=== PATIENT | female | born 1955 | race Caucasian/White ===

== ENCOUNTER 2016-12-12 02:45 | Emergency (ER) | payer OTHER ==
--- NOTE | ~2016-12-12 | CR173 ---
[facility] [place]. [facility] A Service of [facility] & [facility] RADIOLOGY TEXT RESULTS PATIENT: HEIDI DE LEON LOCATION: SED : 57 UNIT #: [id number] AGE: [address]: William Xiong MD SEX: F ORDER DR: [id number] [place] [id number] E MR#: [id number] Acc #: [id number] NAME: HEIDI DE LEON : 1955 SEX: F STUDY DATE/TIME: 12/12/2016 04:08 UNIT: SED ROOM: STUDY DESCRIPTION: CR Knee 3 Views Rt Attending Physician: William Xiong M.D. Ordering Physician: William Xiong M.D. Primary Care Physician: Lissy Johnson MEDICAL IMAGING REPORT This report is preliminary unless electronic signature is present. EXAM Right knee 12/12/2016 04:08 INDICATION Knee pain after fall yesterday. FINDINGS 3 views of the right knee were obtained. There is severe tricompartmental osteoarthritis. No acute fractures are identified, and there is no joint effusion. There may be a loose body in the anterior aspect of the knee. IMPRESSION Severe osteoarthritis. No acute findings in the knee. There may be a loose body within the joint space below the patella. Dictated by... Keaton Gupta Jr., M.D. THIS IS AN ELECTRONICALLY VERIFIED REPORT Keaton Gupta Jr., M.D. at 12/13/2016 6:00 AM DAYANNA/jonah TD: 12/12/2016 06:32 JOB #: [id number] MEDICAL IMAGING REPORT Page 1 of 1
--- NOTE | ~2016-12-12 | CR181 ---
[facility]. [facility] A Service of [facility] & [facility] RADIOLOGY TEXT RESULTS PATIENT: HEIDI DE LEON LOCATION: SED : 57 UNIT #: [id number] AGE: [address]: William Xiong MD SEX: F ORDER DR: [id number] [place] [id number] E MR#: [id number] Acc #: [id number] NAME: HEIDI DE LEON : 1955 SEX: F STUDY DATE/TIME: 12/12/2016 04:08 UNIT: SED ROOM: STUDY DESCRIPTION: CR Lumbar Spine 2 or 3 Views Attending Physician: William Xiong M.D. Ordering Physician: William Xiong M.D. Primary Care Physician: Lissy Johnson MEDICAL IMAGING REPORT This report is preliminary unless electronic signature is present. EXAM Lumbar spine 12/12/2016 04:08 INDICATION Low back pain after fall yesterday. FINDINGS 3 views of the lumbar spine were obtained. No comparison. The patient is fused at L2, L3 and L4 with pedicle screws. The patient is also probably fused at L4-5, L5-S1 without hardware. No acute fractures are identified. There is subtle retrolisthesis of L2 on L3. 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 IMPRESSION Postoperative change from fusion as well as degenerative disease noted. No acute fractures. Dictated by... Keaton Gupta Jr., M.D. THIS IS AN ELECTRONICALLY VERIFIED REPORT Keaton Gupta Jr., M.D. at 12/13/2016 6:00 AM DAYANNA/jonah TD: 12/12/2016 06:29 JOB #: [id number] MEDICAL IMAGING REPORT Page 1 of 1
--- NOTE | ~2016-12-12 | CR151 ---
[facility]. [facility] A Service of [facility] & [facility] RADIOLOGY TEXT RESULTS PATIENT: HEIDI DE LEON LOCATION: SED : 57 UNIT #: [id number] AGE: [address]: William Xiong MD SEX: F ORDER DR: [id number] [place] [id number] E MR#: [id number] Acc #: [id number] NAME: HEIDI DE LEON : 1955 SEX: F STUDY DATE/TIME: 12/12/2016 04:08 UNIT: SED ROOM: STUDY DESCRIPTION: CR Hip Min 2 Views Rt Attending Physician: William Xiong M.D. Ordering Physician: William Xiong M.D. Primary Care Physician: Lissy Johnson MEDICAL IMAGING REPORT This report is preliminary unless electronic signature is present. EXAM Right hip and pelvis 12/13 407 INDICATIONS Right hip pain after a fall yesterday. FINDINGS AP pelvis was obtained in addition to a frog-leg right hip. No comparison. No fracture or malalignment is seen. There is bilateral hip osteoarthritis with joint space narrowing and acetabular spurring. Patient is status post lumbar fusion. IMPRESSION Bilateral hip osteoarthritis. No acute fracture. Dictated by... Keaton Gupta Jr., M.D. THIS IS AN ELECTRONICALLY VERIFIED REPORT Keaton Gupta Jr., M.D. at 12/13/2016 6:00 AM DAYANNA/elsa TD: 12/12/2016 06:29 JOB #: [id number] MEDICAL IMAGING REPORT Page 1 of 1
[~2016-12-12 02:45] MED LIST: AMOXICILLIN875 MG PO; FLEXERIL10 M1 PO; METOPROLOL SUCC25 MG PO; NEURONTIN100 MG PO; NORCO 10-325 TA1 TAB PO; OMEPRAZOLE20 M1 PO; ROBINUL FORTE2 MG PO
[2016-12-12] MEDS ORDERED: FLEXERIL10 MG PO (03:04)
[2016-12-12] MEDS ORDERED: METOPROLOL TAR25 MG DOB (03:05)
[2016-12-12] MEDS ORDERED: VOLTAREN75 MG PO (03:05)
[2016-12-12] MEDS ORDERED: CRESTOR10 MG PO (03:07)
[2016-12-12] MEDS ORDERED: OMEPRAZOLE20 M1 PO (03:07)
[2016-12-12] MEDS ORDERED: BENADRYL25 M3 PO (03:08)
[2016-12-12] MEDS ORDERED: VITAMIN D250000 UNIT PO (03:09)
[2016-12-12] MEDS ORDERED: LORCET HD 10-31 EACH PO (03:12)
[2016-12-12] MEDS ORDERED: OPANA ER30 MG PO (03:12)
[2016-12-12] MEDS ORDERED: LINZESS290 MCG PO (03:13)
== END 2016-12-12 05:35 | disposition home or self-care (01) ==
LOC: SED 02:45
DX: S33.5XXA Sprain of ligaments of lumbar spine, initial encounter (principal); S83.91XA Sprain of unspecified site of right knee, initial encounter; S70.01XA Contusion of right hip, initial encounter; W18.39XA Other fall on same level, initial encounter; F17.200 Nicotine dependence, unspecified, uncomplicated
CPT/HCPCS: 72100; 73502; 73562; 96372; 99284; J1170

== ENCOUNTER → 2016-12-20 | Outpatient (CLI) | payer OTHER ==
[~2016-12-20] MED LIST changes: +BENADRYL25 M3 PO; +CRESTOR10 MG PO; +FLEXERIL10 MG PO; +LINZESS290 MCG PO; +LORCET HD 10-31 EACH PO; +METOPROLOL TAR25 MG DOB; +OPANA ER30 MG PO; +VITAMIN D250000 UNIT PO; +VOLTAREN75 MG PO
--- NOTE | ~2016-12-20 | MR104 ---
[facility] A Service of [facility] & [facility] RADIOLOGY TEXT RESULTS PATIENT: HEIDI DE LEON LOCATION: CMRI : 57 UNIT #: [id number] AGE: [address]: Anand Patel MD SEX: F ORDER DR: [id number] [facility] [address] [place], [place] [address] [id number] O MR#: [id number] Acc #: [id number] NAME: HEIDI DE LEON : 1955 SEX: F STUDY DATE/TIME: 12/20/2016 19:56 UNIT: CMRI ROOM: STUDY DESCRIPTION: MR Knee Wo Contrast Rt Attending Physician: Anand Patel M.D. Referring Physician: Anand Patel M.D. Ordering Physician: Anand Patel M.D. Primary Care Physician: Jerald Walker M.D. MRI CENTER REPORT This report is preliminary unless electronic signature is present. EXAM MRI of the right knee HISTORY 61-year-old female right knee pain, heard a pop. Fell 1 week ago in her bedroom. Pain started over a year ago. COMPARISON Right knee films 12/12/2016. TECHNIQUE Multiplanar, multiecho imaging was performed of the right knee utilizing a high-field magnet and dedicated protocol. FINDINGS Examination demonstrates advanced medial compartment arthrosis with extensive full-thickness cartilage loss medial femoral condyle and medial tibial plateau. There is a subchondral edema, subchondral cystic change, and partial collapse along the central weightbearing aspect of the medial femoral condyle measuring up to 1 cm. There is approximately 1-2 mm of depression of the central medial femoral condyle. Marrow edema also noted along the anterior aspect of the medial tibial plateau. There is a small knee effusion. In the medial compartment, there is a degenerative tear of the midbody segment of the medial meniscus and substantial loss of the meniscal volume and posterior horn of the medial meniscus with probable longitudinal oblique tear. No displaced meniscal fragment. In the lateral compartment, the meniscus appears intact. Mild chondromalacia of the lateral compartment. In the patellofemoral compartment, mild chondromalacia medial patellar facet and median ridge of the patella. Trochlear cartilage unremarkable. Anterior and posterior cruciate ligaments appear intact. The medial collateral ligament is displaced medially secondary to marginal STS. [facility] A Service of [facility] RADIOLOGY TEXT RESULTS PATIENT: HEIDI DE LEON [facility] [birth year] UNIT #: [id number] AGE: [address]: Anand Patel MD SEX: F ORDER DR: osteophytes. The lateral collateral ligament complex appears intact. In the posterior aspect of the knee posterior to the PCL, there is a sizeable structure measuring up to 1.8 cm. It is unclear whether this represents a loose body or a large osteophyte, based on the plain films, I suspect this represents a large osteophyte as there does appear to be a connection to the posterior tibial margin. Extensor mechanism and extraarticular soft tissues unremarkable. There is also a moderate amount of edema and fluid along the popliteus muscle and given the patient's history of a recent injury, this is compatible with a popliteus muscle strain. The popliteus tendon does demonstrate some increased signal suggesting a tendinopathy but no tear. IMPRESSION 1. Developing tricompartment degenerative arthropathy of the knee with medial compartment predominance with extensive full-thickness cartilage loss medial compartment with subchondral edema, medial femoral condyle, and medial tibial plateau. There is central depression of the medial femoral condyle probably related to subchondral collapse and underlying degenerative cystic change. 2. Probable acute popliteus muscle strain with mild popliteus tendinopathy. 3. Extensive degenerative tear of the medial meniscus midbody segment into the posterior horn. No discrete displaced meniscal fragment though there is some medial extrusion meniscus. 4. Not mentioned above, there is a sizeable cyst at the origin of the medial head of the gastrocnemius measuring up to 2 cm compatible with a ganglion cyst. Dictated by... Polly Miramontes M.D. THIS IS AN ELECTRONICALLY VERIFIED REPORT Polly Miramontes M.D. at 12/21/2016 4:35 PM Riley TD: 12/21/2016 10:40 JOB #: [id number] MRI CENTER REPORT Page 1 of 1 COPY
== END | disposition home or self-care (01) ==
LOC: CMRI 18:52
DX: M17.11 Unilateral primary osteoarthritis, right knee (principal); M23.321 Other meniscus derangements, posterior horn of medial meniscus, right knee
CPT/HCPCS: 73721

== ENCOUNTER 2017-03-14 10:25 | Emergency (ER) | payer OTHER ==
[~2017-03-14] VITALS: Ht 160 cm; Wt 88.5 kg
--- NOTE | ~2017-03-14 | US85 ---
[facility] A Service of [facility] RADIOLOGY TEXT RESULTS PATIENT: HEIDI DE LEON LOCATION: [facility] : 57 UNIT #: [id number] AGE: [address]: Milton Nicholson MD SEX: F ORDER DR: [id number] [facility] [address] [place], [place] [address] [id number] E MR#: [id number] Acc #: [id number] NAME: HEIDI DE LEON : 1955 SEX: F STUDY DATE/TIME: 03/14/2017 13:34 UNIT: ELFEGO ROOM: STUDY DESCRIPTION: Mass [facility] Attending Physician: Milton Nicholson M.D. Ordering Physician: Milton Nicholson M.D. Primary Care Physician: Jerald Walker M.D. MEDICAL IMAGING REPORT This report is preliminary unless electronic signature is present EXAM Right lower extremity venous ultrasound HISTORY Right total knee replacement 6 weeks ago. History of PE, DVT. Right lower extremity swelling x6 weeks. TECHNIQUE Venous ultrasound examination of the right lower extremity was performed using grayscale, spectral Doppler and color flow Doppler imaging. FINDINGS The examination is negative. There is no evidence of right lower extremity deep venous thrombus from the groin to the lower calf. Visualized greater saphenous vein is also patent. IMPRESSION Negative examination. No evidence of right lower extremity deep venous thrombosis. Dictated by... William Malave M.D. THIS IS AN ELECTRONICALLY VERIFIED REPORT William Malave M.D. at 03/16/2017 10:02 PM GUTIERREZ/alejandra TD: 03/14/2017 21:49 JOB #: [id number] MEDICAL IMAGING REPORT [facility] A Service of [facility] & [facility] RADIOLOGY TEXT RESULTS PATIENT: HEIDI DE LEON LOCATION: [place] : 57 UNIT #: [id number] AGE: [address]: Milton Nicholson MD SEX: F ORDER DR: Page 1 of 1 COPY
--- NOTE | ~2017-03-14 | EKG ---
PATIENT: HEIDI DE LEON UNIT #: [id number] Ventricular Rate: 62 BPM Atrial Rate: 62 BPM P-R Interval: 156 ms QRS Duration: 82 ms Q-T Interval: 390 ms QTC Calculation(Bezet): 395 ms P [place]: 65 degrees Calculated R [place]: 50 degrees Calculated T [place]: 48 degrees Diagnosis Line: Normal sinus rhythm Diagnosis Line: Normal ECG Diagnosis Line: No previous ECGs available Diagnosis Line: Confirmed by RACHELLE LAKE MD ([id number]) on 03/14/2017 Diagnosis Line: 6:56:06 PM INTERPRETING MD: ALEKSANDRA BARCLAY
--- NOTE | ~2017-03-14 | CT71 ---
[facility] A Service of [facility] RADIOLOGY TEXT RESULTS PATIENT: HEIDI DE LEON LOCATION: [place] : 57 UNIT #: [id number] AGE: [address]: Milton Nicholson MD SEX: F ORDER DR: [id number] [facility] [address] [place], [place] [address] [id number] E MR#: [id number] Acc #: [id number] NAME: HEIDI DE LEON : 1955 SEX: F STUDY DATE/TIME: 03/14/2017 12:49 UNIT: [facility] ROOM: STUDY DESCRIPTION: CT Head Wo Contrast Attending Physician: Milton Nicholson M.D. Ordering Physician: Milton Nicholson M.D. Primary Care Physician: Jerald Walker M.D. MEDICAL IMAGING REPORT This report is preliminary unless electronic signature is present EXAM CT head without contrast. INDICATIONS Confusion for [address] of the head without contrast. Axial noncontrast images were obtained from the skull base to the vertex. Coronal and sagittal reconstructions were obtained. This CT exam was performed with one or more of the following radiation dose reduction techniques: automatic exposure control, adjustment of mA and/or kV according to patient size, and iterative reconstruction. COMPARISON None available. FINDINGS Ventricular size and configuration are normal. There is no evidence of acute infarct or hemorrhage. There are no extra-axial fluid collections. No mass lesion or mass effect is seen. There are no skull fractures. IMPRESSION Normal noncontrast head CT. Dictated by... Chad Hackett M.D. THIS IS AN ELECTRONICALLY VERIFIED REPORT Chad Hackett M.D. at 03/15/2017 8:19 AM JUDITH/yu [facility] [place] [facility]IOLOGY TEXT RESULTS PATIENT: HEIDI DE LEON LOCATION: [place] : 57 UNIT #: [id number] AGE: [address]: Milton Nicholson MD SEX: F ORDER DR: TD: 03/14/2017 18:28 JOB #: [id number] MEDICAL IMAGING REPORT Page 1 of 1 COPY
[2017-03-14 12:37] LABS: BASOPHIL% 0.6 % (0-2.5); EOSINOPHIL# 0.3 X10e3 (0-0.7); EOSINOPHIL% 5.4 % (0.0-7.0); HEMATOCRIT 34.4 % (35.0-45.0); HEMOGLOBIN 11.3 gm/dL (12.0-16.0); LYMPHOCYTE# 2.2 X10e3 (1.0-3.5); LYMPHOCYTE% 35.2 % (17.0-45.0); MEAN CELL VOLUME 93.9 FL (83-96); MEAN CORPUSCULAR HEMOGLOBIN 30.7 PG (28-34); MEAN CORPUSCULAR HGB CONC 32.7 g/dL (30-36); MEAN PLATELET VOLUME 9.2 FL (6.5-11.5); MONOCYTE# 0.5 X10e3 (0-1.0); MONOCYTE% 7.3 % (3.0-12.0); NEUTROPHIL# 3.2 X10e3 (1.5-7.1); NEUTROPHIL% 51.5 % (40-75); PLATELET COUNT 195 X10e3 (140-420); RED BLOOD COUNT 3.67 X10e (3.90-5.30); RED CELL DISTRIBUTION WIDTH 13.9 % (11.0-15.5); WHITE BLOOD COUNT 6.2 X10e3 (4.0-10.5)
[2017-03-14 12:42] LABS: DIFF IND NO
[2017-03-14 13:08] LABS: BILIRUBIN, DIRECT 0.1 mg/dL (0.0-0.2); BILIRUBIN,INDIRECT 0.2 mg/dL (0.0-0.9); BILIRUBIN,TOTAL 0.3 mg/dL (0.2-2.0); CREATININE SERUM 1.2 mg/dL (0.6-1.4); GLOM FILT RATE Estimated 49.1 mL/min (>60); POTASSIUM 4.5 mmol/L (3.5-5.1); PROTEIN TOTAL SERUM 7.2 g/dL (6.0-8.3)
[2017-03-14 14:21] LABS: URINE SOURCE CLEAN CATCH
[2017-03-14 14:33] LABS: URINE APPEARANCE CLEAR; URINE BILIRUBIN NEG (NEG); URINE BLOOD NEG (NEG); URINE COLOR YELLOW; URINE GLUCOSE NEG (NEG); URINE KETONE NEG (NEG); URINE LEUKOCYTE ESTERASE NEG (NEG); URINE NITRATE NEG (NEG); URINE PROTEIN NEG (NEG); URINE SPECIFIC GRAVITY 1.021 (1.003-1.035); URINE UROBILINOGEN 0.2 MG/DL (NEG)
[2017-03-14 14:46] LABS: CULTURE INDICATED? NO
== END 2017-03-14 14:56 | disposition home or self-care (01) ==
LOC: CED 10:25
PROVIDERS: Emergency Medicine
DX: M79.89 Other specified soft tissue disorders (principal); I10 Essential (primary) hypertension; Z96.659 Presence of unspecified artificial knee joint; Z90.49 Acquired absence of other specified parts of digestive tract; Z88.8 Allergy status to other drugs, medicaments and biological substances; F17.200 Nicotine dependence, unspecified, uncomplicated
CPT/HCPCS: 36415; 70450; 80048; 80076; 81003; 82550; 85025; 93005; 93971; 99284